=== PATIENT | female | born 1950 ===

== ENCOUNTER 2021-05-13 13:24 | Emergency (ER) | payer MEDICARE ==
--- NOTE | 2021-05-13 15:26 | Emergency Department Report ---
ED Extremity Problem HPI - General Chief complaint: Extremity Problem,Nontraumatic Stated complaint: OLD FEMUR FRACTURE Time Seen by Provider: 05/13/21 14:55 Source: patient Mode of arrival: Stretcher Limitations: No Limitations - History of Present Illness Initial comments: 70-year-old female presents to ED with right knee pain. Patient reports she has had previous injuries and surgeries to the right knee. Patient is currently in a halfway. States her [employer] and the nurse were helping her get into the bed 3 days ago. She states her leg was in a flexed position and she fell to the bed onto her knee. Patient reports pain since. MD Complaint: extremity pain -: days(s) (3) Location: right, knee History of Same: Yes -: No fever, No associated dyspnea, No associated chest pain Quality: aching Improves with: immobilization Worsens with: palpation Associated Symptoms: denies other symptoms - Related Data Allergies Allergy/AdvReac Type Severity Reaction Status Date / Time Sulfa (Sulfonamide Allergy Hives Verified 05/13/21 13:51 Antibiotics) ED Review of Systems ROS: Stated complaint: OLD FEMUR FRACTURE Other details as noted in HPI Comment: All other systems reviewed and negative Musculoskeletal: as per HPI ED Past Medical Hx - Past Medical History Previous Medical History?: Yes Hx Hypertension: Yes Hx Diabetes: Yes Hx Arthritis: Yes - Surgical History Past Surgical History?: Yes - Social History Smoking Status: Unknown if ever smoked ED Physical Exam - General Limitations: No Limitations General appearance: alert, in no apparent distress, obese - Head Head exam: Present: atraumatic, normocephalic - Eye Eye exam: Present: normal appearance, EOMI - ENT ENT exam: Present: mucous membranes moist - Neck Neck exam: Present: normal inspection - Respiratory Respiratory exam: Present: normal lung sounds bilaterally. Absent: respiratory distress - Cardiovascular Cardiovascular Exam: Present: regular rate, normal rhythm - GI/Abdominal GI/Abdominal exam: Present: soft. Absent: distended, tenderness - Extremities Exam Extremities exam: Present: other (Left BKA present; right knee moderate swelling with tenderness on the medial aspect of the knee) - Neurological Exam Neurological exam: Present: alert, oriented X3 - Psychiatric Psychiatric exam: Present: normal affect, normal mood - Skin Skin exam: Present: warm, dry, intact, normal color ED Course Vital Signs 05/13/21 05/13/21 05/13/21 13:30 14:57 15:00 Temperature 98.6 F 98.1 F Pulse Rate 75 59 L Respiratory 95 H 16 14 Rate Blood Pressure 139/61 140/70 [Left] O2 Sat by Pulse 97 97 Oximetry 05/13/21 15:01 Temperature Pulse Rate Respiratory Rate Blood Pressure [Left] O2 Sat by Pulse 97 Oximetry ED Medical Decision Making - Radiology Data Radiology results: report reviewed, image reviewed - Differential Diagnosis Fracture, sprain Critical care attestation.: If time is entered above; I have spent that time in minutes in the direct care of this critically ill patient, excluding procedure time. ED Disposition Clinical Impression: Right knee sprain Disposition: 01 HOME / SELF CARE / HOMELESS Is pt being admited?: No Condition: Stable Instructions: Knee Sprain, Adult Referrals: MIRELA PINON MD [Staff Physician] - 3-5 Days Time of Disposition: 15:59
--- NOTE | 2021-05-13 15:52 | XRay Report ---
RIGHT KNEE 3 VIEWS INDICATION / CLINICAL INFORMATION: pain, injury COMPARISON: None available. FINDINGS: BONES / JOINT(S): No acute fracture or subluxation. There is an intramedullary nail in the distal asp ect of the right femur there is an old healed femur fracture. There is subjective osteopenia. There a re multiple wire fragments which project over the knee. There is degenerative change in the knee join t with narrowing of the medial and lateral compartment. SOFT TISSUES: No significant abnormality. ADDITIONAL FINDINGS: None. Signer Name: Dionte Guajardo MD Signed: 05/13/2021 3:47 PM Workstation Name: [id number]
[2021-05-13 21:25] VITALS: BP 151/63
[2021-05-13] MEDS ORDERED: ACETAMINOPHEN 500 MG TAB PO ONE (22:39)
== END 2021-05-14 04:35 | disposition home or self-care (01) ==
LOC: ED 13:24
DX: S83.8X1A Sprain of other specified parts of right knee, initial encounter (principal); I10 Essential (primary) hypertension; E11.9 Type 2 diabetes mellitus without complications; M19.90 Unspecified osteoarthritis, unspecified site; Z88.2 Allergy status to sulfonamides; Z79.899 Other long term (current) drug therapy
CPT/HCPCS: 99283